=== PATIENT | female | born 1985 ===

== ENCOUNTER 2017-05-20 09:29 | Inpatient (IN) | payer MEDICAID, SELFPAY ==
[2017-05-20 10:04] VITALS: BMI 32.0
[2017-05-20 10:36] VITALS: O2SAT 100
[2017-05-20] MEDS: Lactated Ringer's 1,000 ML IV SCH ×3 (11:15→17:17)
[2017-05-20 11:45] LABS: BASO % 0.2 % (0.0-2.0); EOS % 0.2 % (0.0-4.0); HEMOGLOBIN 9.4 g/dL (12.0-16.0); LYMPH # 1.4 K/uL (1.0-4.3); LYMPH % 11.1 % (20.0-40.0); MEAN CELL VOLUME 74.8 fl (81.0-99.0); MEAN CORPUSCULAR HEMOGLOBIN 24.2 pg (27.0-31.0); MEAN CORPUSCULAR HGB CONC 32.4 g/dL (33.0-37.0); MEAN PLATELET VOLUME 10.3 fl (7.2-11.7); MONO # 0.9 K/uL (0.0-0.8); NEUT # 10.1 K/uL (1.8-7.0); NEUT % 81.5 % (50.0-75.0); NRBC % 0.1 % (0.0-0.0); RBC 3.88 Mil/uL (3.80-5.20); RED CELL DISTRIBUTION WIDTH 18.3 % (11.5-14.5); WHITE BLOOD COUNT 12.3 K/uL (4.8-10.8)
[2017-05-20] MEDS ORDERED: Bupivacaine HCl 0.25% PF (10 ml) Inj ONE (17:39)
[2017-05-20] MEDS ORDERED: Benzocaine/Menthol SPRAY TOP PRN (21:07)
[2017-05-20] MEDS ORDERED: Oxycodone/Acetaminophen 5/325 mg Tab PO PRN ×2 (21:07)
--- NOTE | 2017-05-20 21:14 | OBDS ---
MATERNAL INFORMATION Provider Comments: Uncomplicated Spontaneous Vaginal Delivery of a viable male infant with sco res of 9 and 9 delivered over an intact perineum. LABOR SUMMARY EDC: 05/13/2017 00:00 No. Babies in Womb: 1 LABOR INFORMATION Onset of Labor: 05/20/2017 02:00 Group B Beta Strep: Negative MEMBRANES Membranes Rupture Method: Artificial Amniotic Fluid Color: Bloody Amniotic Fluid Amount: Scant PRESENTATION/POSITION BABY A Presentation: Cephalic INFANT INFORMATION BABY A Gestational Age at Delivery: 40.0 Gestational Status: Term IDENTIFICATION/MEDS BABY A ID Band Number: [id number]
--- NOTE | 2017-05-20 23:42 | OBADHP ---
Datetime: 05/20/2017 17:52 FHR - Baseline A Provider: 130 Membranes, Provider: Ruptured Contraction Comments Provider: e/3 min Vital Signs Provider: Reviewed; Within Normal Limits NICHD Variability Prov Fetus A: Moderate 6-25bpm NICHD Accel Fetus A IP Provider: [id number] FHR Category Provider Fetus A: Category I Dilatation, Provider: 8 Effacement, Provider: 90 Station, Provider: 0 Datetime: 05/20/2017 10:15 Admit Comment, IP Provider: IUP at 41 weeks c/o CTX this morning every 3-4 min very painful. No lof, VB. +FM PNC CFH with Tameka. PMH: denies PSH:none POBH: x2 PGYNH: no STD NKA A: IUP at 41 weeks, active labor. PLAN: Admit to unit monitor labor progress Case discussed with Dr Vick. Tc PGY 1 Pt seen and discussed with the resident and I agree with the above. Pelvic Type - PN: Adequate Extremities - PN: Normal Abdomen - PN: Normal Back - PN: Normal Breast - PN: Normal Lungs - PN: Normal Heart - PN: Normal Thyroid - PN: Normal Neurologic - PN: Normal HEENT - PN: Normal General - PN: Normal IP Chief Complaint: Uterine contractions NICHD Decel Fetus A IP Provider: None Genitourinary Exam: Normal DTRs - PN: Normal EGA AdmitDate IP: 41.0 IP Adm Impression: Term, intrauterine IP Admit Plan: Admit to unit; Initiate labor protocol; Observation/Evaluation
[2017-05-21] MEDS ORDERED: Benzocaine/Menthol SPRAY TOP PRN (00:45)
[2017-05-21] MEDS ORDERED: Oxycodone/Acetaminophen 5/325 mg Tab PO PRN ×2 (00:45)
[2017-05-21 06:44] LABS: BASO % 0.2 % (0.0-2.0); EOS % 0.2 % (0.0-4.0); HEMOGLOBIN 7.9 g/dL (12.0-16.0); LYMPH # 1.7 K/uL (1.0-4.3); MEAN CELL VOLUME 73.4 fl (81.0-99.0); MEAN CORPUSCULAR HEMOGLOBIN 23.9 pg (27.0-31.0); MEAN CORPUSCULAR HGB CONC 32.5 g/dL (33.0-37.0); MEAN PLATELET VOLUME 9.5 fl (7.2-11.7); MONO # 1.1 K/uL (0.0-0.8); MONO % 8.5 % (0.0-10.0); NEUT # 10.5 K/uL (1.8-7.0); NEUT % 78.1 % (50.0-75.0); RBC 3.33 Mil/uL (3.80-5.20); RED CELL DISTRIBUTION WIDTH 18.2 % (11.5-14.5); WHITE BLOOD COUNT 13.4 K/uL (4.8-10.8)
--- NOTE | 2017-05-21 08:18 | OBPPN ---
Datetime: 05/21/2017 07:05 PP Pain Prov: Within normal limits PP Nausea Prov: Denies PP Flatus Prov: No PP BM Prov: No PP Breasts Prov: Not Done PP Heart Prov: Normal PP Lungs Prov: Normal PP Abdomen/Uterus Prov: Normal PP Lochia Prov: Normal PP Vulva/Perineum Prov: Not Done PP CVA Tenderness Prov: Not Done PP Extremities Prov: Normal PP C/S Incision Prov: Not Applicable PP Progress Prov: Normal PP Impression Prov: Normal progression PP Plan Prov: Continue present management PP Progress Note Prov: 31 yo , s/p NVD on 05/20/17, PPD 1. Pt was seen and examined at bedside this morning; no acute events overnight. Reports mild abdominal pain that is well controlled with me dication. She has ambulated around the room, has voided freely. Has passed gas, but has not had a BM . Lochia like menses in volume. Tolerating diet. Breast and bottle feeding infants. Denies fever, chi lls, chest pain, shortness of breath, nausea, vomiting, pain in calves. Gen: no acute distress, alert CV: S1S2, RRR Resp: normal effort of respiration, clear to auscultation bilaterally Abdomen: BS+, appropriate tenderness to palpation. Uterus is firm and at the level of the umbilicu s. Ext: no edema, calves nontender A: 31 yo , s/p NVD on 05/20/17, PPD 1. Pt stable, pain well controlled. Doing well. P: Continue current post- management. Enourage and ambulation. [email or web address] OB Hospitalist Addendum: Pt seen and examined by me. Agree w/ above. PPD 1 s/p , doing well, breast and bottle feeding. Continue current management. (ES) Vital Signs Provider PP: Reviewed
[2017-05-21] MEDS: Multivitamin With Minerals Tab PO SCH (08:43)
[2017-05-21] MEDS ORDERED: Multivitamin With Minerals Tab PO SCH (09:00)
--- NOTE | 2017-05-21 11:16 | OBHP ---
Datetime: 05/20/2017 17:52 FHR - Baseline A Provider: 130 Membranes, Provider: Ruptured Contraction Comments Provider: e/3 min Vital Signs Provider: Reviewed; Within Normal Limits NICHD Variability Prov Fetus A: Moderate 6-25bpm NICHD Accel Fetus A IP Provider: [id number] FHR Category Provider Fetus A: Category I Dilatation, Provider: 8 Effacement, Provider: 90 Station, Provider: 0 Datetime: 05/20/2017 10:15 IP Adm Impression: Term, intrauterine IP Admit Plan: Admit to unit; Initiate labor protocol; Observation/Evaluation Admit Comment, IP Provider: IUP at 41 weeks c/o CTX this morning every 3-4 min very painful. No lof, VB. +FM PNC CFH with Tameka. PMH: denies PSH:none POBH: x2 PGYNH: no STD NKA A: IUP at 41 weeks, active labor. PLAN: Admit to unit monitor labor progress Case discussed with Dr Vick. Tc PGY 1 Pelvic Type - PN: Adequate Extremities - PN: Normal Abdomen - PN: Normal Back - PN: Normal Breast - PN: Normal Lungs - PN: Normal Heart - PN: Normal Thyroid - PN: Normal Neurologic - PN: Normal HEENT - PN: Normal General - PN: Normal EGA AdmitDate IP: 41.0 IP Chief Complaint: Uterine contractions NICHD Decel Fetus A IP Provider: None Genitourinary Exam: Normal DTRs - PN: Normal
[2017-05-22] MEDS: Multivitamin With Minerals Tab PO SCH (08:44)
[2017-05-22 18:51] VITALS: BP 109/73; PULSE 67; RESP 20; TEMP 97.8
--- NOTE | 2017-05-22 20:05 | OBDCSUM ---
Datetime: 05/22/2017 06:29 Discharge Time: 05/22/2017 11:00 Disch Referrals: None Disch Activity Restrictions: No sexual activity; Nothing in vagina - [place], tampons, douche
--- NOTE | 2017-05-22 20:07 | OBPPN ---
Datetime: 05/22/2017 06:24 PP Pain Prov: Within normal limits PP Nausea Prov: Denies PP Flatus Prov: Yes PP BM Prov: No PP Breasts Prov: Not Done PP Heart Prov: Normal PP Lungs Prov: Normal PP Abdomen/Uterus Prov: Normal PP Lochia Prov: Normal PP Vulva/Perineum Prov: Not Done PP CVA Tenderness Prov: Not Done PP Extremities Prov: Normal PP C/S Incision Prov: Not Applicable PP Progress Prov: Normal PP Impression Prov: Normal progression PP Plan Prov: Discharge PP Progress Note Prov: 31 yo , s/p NVD on 05/20/17, PPD2. Pt was seen and examined at bedside this morning; no acute events overnight. Reports mild abdominal pain that is well controlled with med ication. She has ambulated around the room, has voided freely. Has passed gas, but has not had a BM. Lochia less than menses in volume. Tolerating regular diet. Breast and bottle feeding baby. Denies f ever, chills, chest pain, shortness of breath, nausea, vomiting, pain in calves. Gen: no acute distress, alert, dressed in own clothing CV: S1S2, RRR Resp: normal effort of respiration, clear to auscultation bilaterally Abdomen: BS+, appropriate tenderness to palpation, non-distended. Uterus is firm and at the level of the umbilicus. Ext: no edema, calves nontender A: 31 yo , s/p NVD on 05/20/17, PPD 2. Pt stable, pain well controlled. Doing well. P: Discharge today. [email or web address] Attending addendum: Patient seen and examined by me. agree w/ assessment and plan. Iron supplementation on d/c home Vital Signs Provider PP: Reviewed; Within Normal Limits
== END 2017-05-22 14:26 | disposition home or self-care (01) | DRG 775 ==
LOC: H.EROB2 09:29 → EDBD 09:29 → H.L&D 10:10 → H.OB/GYN 23:40
PROVIDERS: ADMIT Obstetrics & Gynecology; ATTEND Obstetrics & Gynecology
PROC: 10E0XZZ Delivery of Products of Conception, External Approach (ICD-10-PCS; principal; 2017-05-22)
PROC: 4A0HXCZ Measurement of Products of Conception, Cardiac Rate, External Approach (ICD-10-PCS; 2017-05-22)
DX: O48.0 Post-term pregnancy (principal); Z37.0 Single live birth; Z3A.41 41 weeks gestation of pregnancy